=== PATIENT | male | born 1960 | race Caucasian/White ===

== ENCOUNTER 2018-03-10 18:16 | Emergency (ER) | payer OTHER, MEDICAID, SELFPAY ==
[2018-03-10 18:20] VITALS: BP 133/79; PULSE 87; RESP 36; TEMP 36.6; O2SAT 89
[2018-03-10 18:39] LABS: Add Manual Diff / Slide Review NO; Basophils Percent Auto 0.8 % (0-2); Eosinophils Percent Auto 15.2 % (2-4); Hematocrit 43.9 % (41-53); Hemoglobin 14.9 g/dL (13.5-17.5); Mean Corpuscular HGB Conc 33.9 % (30-36); Mean Corpuscular Hemoglobin 32.7 PG (26-34); Mean Corpuscular Volume 96.5 fL (80-100); Monocytes Percent Auto 8.5 % (3-14); Neutrophils Absolute Auto 5100 /uL (3000-5900); Neutrophils Percent Auto 55.5 % (50-75); Platelet Count 256 X10^3/uL (150-400); Red Blood Cell Count 4.55 X10^6/uL (4.5-5.9); Red Cell Distribution Width 13.3 % (11.6-14.8); White Blood Cell Count 9.2 X10^3/uL (4.5-11.0)
[2018-03-10 18:46] LABS: Calcium 8.6 mg/dL (8.4-10.2); Estimated Glomerular Filt Rate > 60.0 mL/min (>60); Glucose 96 mg/dL (70-100); HEMOLYSIS 65 (0-50); Magnesium 2.1 mg/dL (1.6-2.3); Potassium 4.3 mmol/L (3.4-5.1); Sodium 145 mmol/L (137-145)
[2018-03-10 18:55] LABS: B Type Natriuretic Peptide < 29.3 (<100)
[2018-03-10 19:03] LABS: Procalcitonin < 0.05 ng/mL (<0.5)
[2018-03-10 19:05] LABS: Lactate (Lactic Acid) 0.8 mmol/L (0.7-2.1)
[2018-03-10] MEDS: ALBUTEROL 2.5 MG/3 ML NEB 15 MG INH (19:05)
[2018-03-10] MEDS: ALBUTEROL 2.5 MG/3 ML NEB INH (19:06)
[2018-03-10] MEDS: ALBUTEROL/IPRATROPIUM 3 ML AMPUL INH (19:06)
[2018-03-10] MEDS: methylPREDNISolone 125 MG/2 ML VIAL IV (19:09)
[2018-03-10 19:12] LABS: Fractionated Inspired Oxygen 36; HCO3 ABG 28 mmol/L (23-27); Oxygen Saturation ABG 98 % (95-100); PCO2 ABG 55.7 mmHg (35-45); PO2 ABG 115 mmHg (80-105); TCO2 ABG 29 mmol/L (23-27)
[2018-03-10 20:00] VITALS: BP 133/85; PULSE 112; RESP 19; O2SAT 98
[2018-03-10 20:20] VITALS: BP 115/69; PULSE 79; RESP 15; O2SAT 94
[2018-03-10 21:00] VITALS: BP 105/74; PULSE 84; RESP 15; O2SAT 93
--- NOTE | 2018-03-10 21:17 | ED_ITS ---
HPI - SOB/Dyspnea General Chief Complaint: Shortness of Breath/Dyspnea Stated Complaint: Difficulty Breathing Time Seen by Provider: 03/10/18 18:30 Source: patient Mode of arrival: ambulatory Limitations: no limitations History of Present Illness Patient with longstanding history of smoking and COPD presents with exacerbation of symptoms over the past few days. He denies fever or chills but has had some cough productive of whitish sputum. He has been using his medications at home without much in the way of relief. Related Data Previous Rx's Medication Instructions Recorded doxycycline monohydrate 100 mg PO BID 10 Days #20 cap 03/10/18 prednisone See Label Instructions .ROUTE 03/10/18 .COMPLEX #30 tab Allergies Allergy/AdvReac Type Severity Reaction Status Date / Time No Known Drug Allergies Allergy Verified 03/10/18 18:17 Review of Systems Review of Systems All systems reviewed & are unremarkable except as noted in HPI and below Constitutional Denies chills, Denies fever(s), Denies lethargy and Denies weakness Eyes Denies change in vision, Denies eye discharge, Denies irritation and Denies loss of vision ENT Ears, Nose, Mouth, and Throat: Denies change in voice, Denies neck pain and Denies sore throat Cardiovascular Denies chest pain, Denies irregular heart rhythm, Denies lightheadedness, Denies palpitations, Reports dyspnea, Denies dyspnea on exertion and Denies orthopnea Respiratory Reports cough, Reports dyspnea, Denies dyspnea on exertion and Reports wheezing Gastrointestinal Gastrointestinal: Denies abdominal pain, Denies change in bowel habits, Denies diarrhea, Denies nausea and Denies vomiting Genitourinary Denies hematuria, Denies flank pain, Denies urinary incontinence and Denies urinary urgency Musculoskeletal Denies neck pain Integumentary/Breasts Denies pruritus, Denies erythema, Denies rash and Denies wounds Neurologic Denies confusion, Denies loss of vision and Denies weakness Psychiatric Denies anxiety, Denies confusion, Denies depression, Denies homicidal ideation and Denies suicidal ideation Endocrine Denies palpitations Hematologic/Lymphatic Denies easy bruising Allergic/Immunologic Reports wheezing PENDING SALE TO [facility] Social History Smoking Status: Current every day smoker Exam Initial Vital Signs Initial Vital Signs: Vital Signs Temperature 97.8 F 03/10/18 18:20 Pulse Rate 87 03/10/18 18:20 Respiratory Rate 36 H 03/10/18 18:20 Blood Pressure 133/79 H 03/10/18 18:20 Pulse Oximetry 89 L 03/10/18 18:20 Const General: cooperative and well developed Nutritional Appearance: well nourished Orientation: alert, awake, oriented x3 and not confused [facility] Head: normocephalic and atraumatic Ears: external ears normal and TM's normal bilaterally Nose: external nose normal and No nasal discharge Face and sinus: sinuses nontender, face symmetric, no sinus tenderness and No dry mucous membranes Mouth: oral mucosae normal and moist mucous membranes Teeth and gingiva: dentition normal Throat: tonsils normal and uvula midline Eyes General: appearance normal, both eyes and all related structures Eyelids: eyelids normal Conjunctivae: conjunctivae normal Sclera: sclerae normal Pupils: PERRL EOM: EOM intact bilaterally Neck Neck: normal visual inspection, trachea midline, No lymphadenopathy, No midline deformity and No JVD Lymphatic: No lymphedema Resp Effort & Inspection: normal respiratory effort, not able to speak in complete sentences, abnormal respiratory pattern, audible wheezes, cough, labored, respiratory distress and uses accessory muscles Auscultation: diminished lung sounds, no rales, no rhonchi and wheezes Cardio Rate: regular rate Rhythm: regular rhythm Heart Sounds: no click, no gallops, no murmurs and no rubs Pulses: normal peripheral pulses Back/Spine/Pelvis Back: No CVA tenderness Cervical Spine: cervical ROM normal and No pain with cervical ROM Thoracic/Lumbar Spine: thoracic and lumbar spine normal to inspection Neuro General: alert, oriented x3, gait normal and no focal motor deficits Speech: speech normal Psych Appearance: well kempt Mental Status: mental status grossly normal Attitude: cooperative Thought Content: normal and suicidality Judgment: judgment good Course Orders Ordered: ED Orders 03/10/18 18:25 B Type Natriuretic Peptide Stat Basic Metabolic Panel Stat Complete Blood Count AUTO DIFF Stat Magnesium Stat Procalcitonin Stat 03/10/18 18:31 Consult to Respiratory Therapy Evaluate & Treat EKG-12 Lead Stat 03/10/18 18:45 Lactate (Lactic Acid) Stat 03/10/18 18:46 Arterial Blood Gas Stat 03/10/18 19:01 Blood Culture Stat Discontinued Medications Albuterol (Ventolin) 2.5 mg INH NOW ONE Stop: 03/10/18 18:55 Last Admin: 03/10/18 19:06 Dose: 2.5 mg Albuterol (Ventolin) 2.5 mg INH Q20M QUITA Stop: 03/10/18 19:41 Albuterol (Ventolin) 15 mg INH NOW ONE Stop: 03/10/18 19:04 Last Admin: 03/10/18 19:05 Dose: 15 mg Albuterol/Ipratropium (Duoneb) 3 ml INH NOW ONE Stop: 03/10/18 18:55 Last Admin: 03/10/18 19:06 Dose: 3 ml Doxycycline Hyclate (Vibramycin) 100 mg PO NOW ONE Stop: 03/10/18 21:12 Last Admin: 03/10/18 21:24 Dose: 100 mg Methylprednisolone (Solu-Medrol 125 Mg Vial) 125 mg IV NOW ONE Stop: 03/10/18 18:31 Last Admin: 03/10/18 19:09 Dose: 125 mg Reevaluation(s) Reevaluation #1: Patient feeling much better after BD therapies Time: 20:30 Reevaluation #2: Patient resting comfortably with normalizing vitals. Feeling much better and requesting discharge Time: 21:17 Vital Signs - 8 hr 03/10/18 18:20 03/10/18 20:00 03/10/18 20:20 Temperature 97.8 F Pulse Rate 87 112 H 79 Respiratory Rate 36 H 19 15 Blood Pressure 133/79 H Blood Pressure [Right Arm] 133/85 H 115/69 Pulse Oximetry 89 L 98 94 03/10/18 21:00 03/10/18 21:36 Temperature Pulse Rate 84 74 Respiratory Rate 15 16 Blood Pressure 122/75 H Blood Pressure [Right Arm] 105/74 Pulse Oximetry 93 94 MDM - SOB/Dyspnea Lab Data Result diagrams: 03/10/18 18:25 03/10/18 18:25 Lab Results 03/10/18 03/10/18 03/10/18 Range/Units 18:25 18:25 18:25 WBC 9.2 (4.5-11.0) X10^3/uL RBC 4.55 (4.5-5.9) X10^6/uL Hgb 14.9 (13.5-17.5) g/dL Hct 43.9 (41-53) % MCV 96.5 (80-100) fL MCH 32.7 (26-34) PG MCHC 33.9 (30-36) % RDW 13.3 (11.6-14.8) % Plt Count 256 (150-400) X10^3/uL Neut % (Auto) 55.5 (50-75) % Lymph % (Auto) 20.0 L (25-40) % [place] % (Auto) 8.5 (3-14) % Eos % (Auto) 15.2 H (2-4) % Baso % (Auto) 0.8 (0-2) % Neut # (Auto) 5100 (6613-4812) /uL ABG pH (7.35-7.45) ABG pCO2 (35-45) mmHg ABG pO2 (80-105) mmHg ABG HCO3 (23-27) mmol/L ABG Total CO2 (23-27) mmol/L ABG O2 Saturation (95-100) % ABG Base Excess (-2-3) mmol/L FiO2 Sodium 145 (137-145) mmol/L Potassium 4.3 (3.4-5.1) mmol/L Chloride 105.0 (98-107) mmol/L Carbon Dioxide 28.0 (22-32) mmol/L BUN 15.0 (9-20) mg/dL Creatinine 0.60 L (0.66-1.25) mg/dL Estimated GFR > 60.0 (>60) mL/min BUN/Creatinine Ratio 25.0 H (6-22) Glucose 96 (70-100) mg/dL Lactate (0.7-2.1) mmol/L Calcium 8.6 (8.4-10.2) mg/dL Magnesium 2.1 (1.6-2.3) mg/dL B-Natriuretic Peptide < 29.3 L (<100) Procalcitonin < 0.05 (<0.5) ng/mL 03/10/18 03/10/18 Range/Units 18:45 18:46 WBC (4.5-11.0) X10^3/uL RBC (4.5-5.9) X10^6/uL Hgb (13.5-17.5) g/dL Hct (41-53) % MCV (80-100) fL MCH (26-34) PG MCHC (30-36) % RDW (11.6-14.8) % Plt Count (150-400) X10^3/uL Neut % (Auto) (50-75) % Lymph % (Auto) (25-40) % [place] % (Auto) (3-14) % Eos % (Auto) (2-4) % Baso % (Auto) (0-2) % Neut # (Auto) (2892-5792) /uL ABG pH 7.30 L (7.35-7.45) ABG pCO2 55.7 H (35-45) mmHg ABG pO2 115 H (80-105) mmHg ABG HCO3 28 H (23-27) mmol/L ABG Total CO2 29 H (23-27) mmol/L ABG O2 Saturation 98 (95-100) % ABG Base Excess 1.0 (-2-3) mmol/L FiO2 36 Sodium (137-145) mmol/L Potassium (3.4-5.1) mmol/L Chloride (98-107) mmol/L Carbon Dioxide (22-32) mmol/L BUN (9-20) mg/dL Creatinine (0.66-1.25) mg/dL Estimated GFR (>60) mL/min BUN/Creatinine Ratio (6-22) Glucose (70-100) mg/dL Lactate 0.8 (0.7-2.1) mmol/L Calcium (8.4-10.2) mg/dL Magnesium (1.6-2.3) mg/dL B-Natriuretic Peptide (<100) Procalcitonin (<0.5) ng/mL Discharge Plan Departure Patient Disposition: Home, Self-Care Clinical Impression: Acute exacerbation of chronic obstructive airways disease Discharge Date/Time: 03/10/18 21:38 Interventions: ED Discharge Assessment Last Done: 03/10/18 21:36 Instructions: DI for Chronic Obstructive Pulmonary Disease Activity Restrictions/Additional Instructions: *You have been diagnosed with [ worsening episode of COPD ] *What to do: *Take medications as directed *Follow up with your primary care provider in 2-3 days *Return to ER if you should have any new, worsening or concerning symptoms Prescriptions: New doxycycline monohydrate 100 mg capsule 100 mg PO BID 10 Days Qty: 20 RF: 0 prednisone 10 mg tablet See Label Instructions .ROUTE .COMPLEX Qty: 30 RF: 0
[2018-03-10] MEDS: DOXYCYCLINE HYCLATE 100 MG TABLET PO (21:24)
[2018-03-10 21:36] VITALS: BP 122/75; PULSE 74; RESP 16; O2SAT 94
== END 2018-03-10 21:38 | disposition home or self-care (01) ==
PROVIDERS: Emergency Provider Emergency Medicine
DX: J44.9 Chronic obstructive pulmonary disease, unspecified (principal)
CPT/HCPCS: 36415; 36591; 36600; 80048; 82805; 83605; 83735; 83880; 84145; 85025; 87040; 93005; 96374; 99283; 99284; J2930; J7613